=== PATIENT | female | born 1950 | race Caucasian/White ===

== ENCOUNTER 2016-09-06 15:16 | Emergency (ER) | payer MEDICARE, OTHER ==
[2016-09-06 15:45] VITALS: TEMP 97.9
--- NOTE | 2016-09-06 15:51 | ED.PDOC ---
History of Present Illness - General Chief Complaint: Respiratory Problem Stated Complaint: cough,congestion,itchy throat Time Seen by Provider: 09/06/16 15:47 Source: patient Exam Limitations: no limitations - History of Present Illness Initial Comments: She stated that her dry cough and and nasal congestion started one week ago after coming from [facility] to visit relatives.She has history of asthma but stated feels that its not her asthma its her allergies. Timing/Duration: other - 10 days ago Severity: moderate Improving Factors: nothing Worsening Factors: other - weather Associated Symptoms: denies symptoms Allergies/Adverse Reactions: Allergies NO KNOWN ALLERGY Allergy (Verified 09/06/16 15:45) Home Medications: Ambulatory Orders Amitriptyline HCl 50 mg PO BEDTIME 09/06/16 Benzonatate Perles [Tessalon Perles] 200 mg PO BID #30 cap 09/06/16 Cefuroxime Axetil [Ceftin] 500 mg PO BID #14 tab 09/06/16 Cetirizine HCl [ZyrTEC] 10 mg PO DAILY 09/06/16 Chlorpheniramine Maleate [Chlor-Trimeton Allergy] 12 mg PO BEDTIME #30 tab 09/06 Levothyroxine Sodium 25 mcg PO DAILY 09/06/16 Lisinopril 5 mg PO DAILY 09/06/16 Pantoprazole Sodium 40 mg PO DAILY 09/06/16 amLODIPine BESYLATE [Norvasc] 5 mg PO DAILY 09/06/16 predniSONE [Prednisone] 10 mg PO BID #14 tab 09/06/16 Review of Systems - Review of Systems Constitutional: States: no symptoms reported EENTM: States: nose congestion Respiratory: States: cough Cardiology: States: no symptoms reported Gastrointestinal/Abdominal: States: no symptoms reported Genitourinary: States: no symptoms reported Musculoskeletal: States: no symptoms reported Skin: States: no symptoms reported Neurological: States: no symptoms reported Endocrine: States: no symptoms reported Hematologic/Lymphatic: States: no symptoms reported Past Medical History (General) - Patient Medical History Hx Asthma: Yes Hx Hypertension: Yes Surgical History: tonsillectomy, Hysterectomy - Vaccination History Hx Influenza Vaccination: Yes Hx Pneumococcal Vaccination: Yes - Social History Hx Tobacco Use: No Family Medical History - Family History Mother Family History: Unknown Living Status: Unknown Hx Family Hypertension: Yes - multiple family members Physical Exam - Physical Exam General Appearance: Alert, No apparent distress Eye Exam: bilateral normal Ears, Nose, Throat: hearing grossly normal, normal ENT inspection, normal pharynx, nasal congestion Neck: non-tender, full range of motion, supple Respiratory: chest non-tender, lungs clear, normal breath sounds, no respiratory distress Cardiovascular/Chest: normal peripheral pulses, regular rate, rhythm, no edema, no gallop, no JVD, no murmur Peripheral Pulses: radial,right: 2+, radial,left: 2+ Gastrointestinal/Abdominal: normal bowel sounds, non tender, soft, no organomegaly Back Exam: normal inspection, no CVA tenderness, no vertebral tenderness Extremity: normal range of motion, non-tender, normal inspection Neurologic: no motor/sensory deficits, alert, normal mood/affect, oriented x 3 Skin Exam: normal color, warm/dry Lymphatic: no adenopathy Departure - Departure Clinical Impression: Bronchitis with asthma, subacute Time of Disposition: 16:54 Disposition: Discharge to Home or Self Care Condition: Good Departure Forms: ED Discharge - Pt. Copy, Patient Portal Self Enrollment Prescriptions: Cefuroxime Axetil [Ceftin] 500 mg PO BID #14 tab Chlorpheniramine Maleate [Chlor-Trimeton Allergy] 12 mg PO BEDTIME #30 tab predniSONE [Prednisone] 10 mg PO BID #14 tab Benzonatate Perles [Tessalon Perles] 200 mg PO BID #30 cap Home Medications: Ambulatory Orders Amitriptyline HCl 50 mg PO BEDTIME 09/06/16 Benzonatate Perles [Tessalon Perles] 200 mg PO BID #30 cap 09/06/16 Cefuroxime Axetil [Ceftin] 500 mg PO BID #14 tab 09/06/16 Cetirizine HCl [ZyrTEC] 10 mg PO DAILY 09/06/16 Chlorpheniramine Maleate [Chlor-Trimeton Allergy] 12 mg PO BEDTIME #30 tab 09/06 Levothyroxine Sodium 25 mcg PO DAILY 09/06/16 Lisinopril 5 mg PO DAILY 09/06/16 Pantoprazole Sodium 40 mg PO DAILY 09/06/16 amLODIPine BESYLATE [Norvasc] 5 mg PO DAILY 09/06/16 predniSONE [Prednisone] 10 mg PO BID #14 tab 09/06/16
[2016-09-06] MEDS ORDERED: DEXAMETHASONE INJ 4 MG/ML VIAL IM ONE (15:55)
[2016-09-06] MEDS ORDERED: IPRATROPIUM/ALBUTEROL 3 ML VIAL NEB ONE (15:56)
[2016-09-06 16:08] VITALS: O2SAT 99
[2016-09-06 17:04] VITALS: BP 140/85
--- NOTE | 2016-09-22 00:01 | RAD ---
EXAM: Chest,1 View CLINICAL INDICATION: 65-year-old female with cough. TECHNIQUE: Single view, AP portable chest was obtained. COMPARISON: None. FINDINGS: Cardiac mediastinal silhouette within normal limits of size. Heart size is normal. Tortuous thoracic aorta.Low lung volumes grossly clear without focal opacity, pneumothorax or pleural effusions. Faint haziness at the level of the LEFT lower lobe be secondary to subsegmental atelectasis or consolidation. The visualized bones reveal degenerative change. IMPRESSION: 1. Low lung volumes.2. Faint haziness at the level of the LEFT lower lobe be secondary to subsegmental atelectasis or consolidation. Electronically signed by: Beverley Stark MD 09/06/2016 4:31 PM [employer]
== END 2016-09-06 17:04 | disposition home or self-care (01) ==
LOC: ER 15:16
DX: J45.909 Unspecified asthma, uncomplicated (principal); I10 Essential (primary) hypertension; Z79.899 Other long term (current) drug therapy
CPT/HCPCS: 71010; 94640; J1100; J7620

== ENCOUNTER 2016-09-07 13:46 | Emergency (ER) | payer MEDICARE ==
[2016-09-07] MEDS ORDERED: IPRATROPIUM/ALBUTEROL 3 ML VIAL NEB ONE (14:16)
[2016-09-07] MEDS ORDERED: LIDOCAINE VIS-MYLANTA 30 ML UD PO ONE (14:16)
--- NOTE | 2016-09-07 14:19 | ED.PDOC ---
History of Present Illness - General Chief Complaint: Respiratory Problem Stated Complaint: Bronchitis Time Seen by Provider: 09/07/16 13:51 Source: patient, RN notes reviewed, Vital Signs reviewed, old records Exam Limitations: no limitations - History of Present Illness Comments: Patient comes in with c/o continued allergies and bronchitis. She also has a chronic GI reflux issue that has worsened with her current illness. She was seen here in the ER yesterday. Was given a steroid shot and started on antibiotics, PO steroids, cough medication and decongestant. Timing/Duration: yesterday Cough Quality/Degree: moderate, dry cough Possible Cause: allergen exposure, illness exposure Improving Factors: medication Worsening Factors: nothing Associated Symptoms: cough, facial pain, headache, nasal congestion, nasal drainage, shortness of breath Respiratory Risk Factors: exposure to illness, exposure to allergen Allergies/Adverse Reactions: Allergies NO KNOWN ALLERGY Allergy (Verified 09/06/16 15:45) Home Medications: Ambulatory Orders Amitriptyline HCl 50 mg PO BEDTIME 09/06/16 Benzonatate Perles [Tessalon Perles] 200 mg PO BID #30 cap 09/06/16 Cefuroxime Axetil [Ceftin] 500 mg PO BID #14 tab 09/06/16 Cetirizine HCl [ZyrTEC] 10 mg PO DAILY 09/06/16 Chlorpheniramine Maleate [Chlor-Trimeton Allergy] 12 mg PO BEDTIME #30 tab 09/06 Levothyroxine Sodium 25 mcg PO DAILY 09/06/16 Lisinopril 5 mg PO DAILY 09/06/16 Pantoprazole Sodium 40 mg PO DAILY 09/06/16 amLODIPine BESYLATE [Norvasc] 5 mg PO DAILY 09/06/16 predniSONE [Prednisone] 10 mg PO BID #14 tab 09/06/16 Ondansetron [Zofran Odt] 4 mg PO Q4HR PRN #20 tab 09/07/16 Review of Systems - Review of Systems Constitutional: States: malaise, weakness. Denies: chills, diaphoresis, fever EENTM: States: see HPI, nose congestion. Denies: double vision, ear pain, throat pain, throat swelling, mouth pain, mouth swelling Respiratory: States: cough, short of breath. Denies: orthopnea, stridor, wheezing Cardiology: States: no symptoms reported Gastrointestinal/Abdominal: States: see HPI, other - GERD Musculoskeletal: States: no symptoms reported Skin: States: no symptoms reported Neurological: States: headache Endocrine: States: no symptoms reported Hematologic/Lymphatic: States: no symptoms reported Past Medical History (General) - Patient Medical History Hx Asthma: Yes Hx Hypertension: Yes - Vaccination History Hx Influenza Vaccination: Yes Hx Pneumococcal Vaccination: Yes - Social History Hx Tobacco Use: No Family Medical History - Family History Mother Family History: Unknown Living Status: Unknown Hx Family Hypertension: Yes - multiple family members Physical Exam - Physical Exam General Appearance: Alert, Anxious, No apparent distress, Well Developed, Well Groomed, Well Hydrated, Well Nourished Neck: non-tender, full range of motion, supple, normal inspection, trachea midline Respiratory: chest non-tender, no respiratory distress, no accessory muscle use , rhonchi Cardiovascular/Chest: regular rate, rhythm, no edema, no gallop, no JVD, no murmur Extremity: normal range of motion, normal inspection Neurologic: no motor/sensory deficits, alert, normal mood/affect, oriented x 3 Skin Exam: normal color, warm/dry Lymphatic: no adenopathy Progress - Progress Progress: 09/07/16 15:43 Patient is feeling better except for nausea. Will give PO Zofran and write script for her to go home with. Advised to continue antibiotics, steroids and decongestants she was given yesterday. Reassured her that is will most likely take at least 48-72 hours for her to start feeling better. Departure - Departure Clinical Impression: Bronchitis with asthma, subacute, Nausea, GERD (gastroesophageal reflux disease ) Time of Disposition: 15:45 Disposition: Discharge to Home or Self Care Condition: Good Instructions: DI for Acute Bronchitis, DI for Gastroesophageal Reflux Disease ( GERD) Diet: bland diet Activity: increase activity as tolerated Prescriptions: Ondansetron [Zofran Odt] 4 mg PO Q4HR PRN #20 tab PRN Reason: Nausea/Vomiting Home Medications: Ambulatory Orders Amitriptyline HCl 50 mg PO BEDTIME 09/06/16 Benzonatate Perles [Tessalon Perles] 200 mg PO BID #30 cap 09/06/16 Cefuroxime Axetil [Ceftin] 500 mg PO BID #14 tab 09/06/16 Cetirizine HCl [ZyrTEC] 10 mg PO DAILY 09/06/16 Chlorpheniramine Maleate [Chlor-Trimeton Allergy] 12 mg PO BEDTIME #30 tab 09/06 Levothyroxine Sodium 25 mcg PO DAILY 09/06/16 Lisinopril 5 mg PO DAILY 09/06/16 Pantoprazole Sodium 40 mg PO DAILY 09/06/16 amLODIPine BESYLATE [Norvasc] 5 mg PO DAILY 09/06/16 predniSONE [Prednisone] 10 mg PO BID #14 tab 09/06/16 Ondansetron [Zofran Odt] 4 mg PO Q4HR PRN #20 tab 09/07/16 Additional Instructions: Continue antibiotics, steroids and decongestants.
[2016-09-07 14:44] VITALS: TEMP 99.6
[2016-09-07 15:25] VITALS: O2SAT 97
[2016-09-07] MEDS ORDERED: ONDANSETRON ODT 8 MG TAB SL ONE (15:41)
[2016-09-07 16:04] VITALS: BP 141/71
== END 2016-09-07 15:50 | disposition home or self-care (01) ==
LOC: ER 13:46
DX: J45.909 Unspecified asthma, uncomplicated (principal); K21.9 Gastro-esophageal reflux disease without esophagitis; R11.0 Nausea; I10 Essential (primary) hypertension; Z79.899 Other long term (current) drug therapy
CPT/HCPCS: 94640; J7620

== ENCOUNTER 2018-08-08 22:30 | Emergency (ER) | payer MEDICARE, OTHER ==
[2018-08-08] MEDS ORDERED: diphenhydrAMINE HCL 25 MG CAP PO ONE (22:42)
[2018-08-08] MEDS ORDERED: IPRATROPIUM/ALBUTEROL 3 ML VIAL NEB ONE (22:42)
[2018-08-08] MEDS ORDERED: predniSONE 20 MG TAB PO ONE (22:42)
[2018-08-08] MEDS ORDERED: EPINEPHrine HCL AMP 1 MG/ML AMP ONE (23:05)
[2018-08-08] MEDS ORDERED: EPINEPHrine HCL AMP 1 MG/ML AMP IM ONE (23:07)
[2018-08-08] MEDS ORDERED: MONTELUKAST 10 MG TAB ONE (23:11)
[2018-08-09 00:16] VITALS: TEMP 99.2
--- NOTE | 2018-08-09 00:45 | ED.PDOC ---
History of Present Illness - General Chief Complaint: Respiratory Problem Stated Complaint: cough, congestion Time Seen by Provider: 08/08/18 22:38 Source: patient Exam Limitations: no limitations - History of Present Illness Initial Comments: The patient is a 67-year-old female presenting to the emergency room secondary to acute onset of some shortness of breath along with hoarseness and severe coughing. No fevers.. Mild lower sore throat. No facial swelling. She does have a history of severe environmental allergies. She did take a couple of puffs from her inhaler. Timing/Duration: 4-6 hours Severity: moderate Improving Factors: nothing Worsening Factors: nothing Associated Symptoms: shortness of breath Allergies/Adverse Reactions: Allergies NO KNOWN ALLERGY Allergy (Verified 09/06/16 15:45) Home Medications: Ambulatory Orders Levothyroxine Sodium 25 mcg PO DAILY 09/06/16 Lisinopril 5 mg PO DAILY 09/06/16 Pantoprazole Sodium 40 mg PO DAILY 09/06/16 amLODIPine BESYLATE [Norvasc] 10 mg PO DAILY 09/06/16 DULoxetine HCL [Cymbalta] 30 mg PO DAILY 08/08/18 Ferrous Sulfate 325 mg PO DAILY 08/08/18 Fluticasone Furoate-Vilanterol [Breo Ellipta 100-25 Mcg/INH] 08/08/18 Fluticasone Propionate (Nasal) [Flonase] 50 mcg NA DAILY 08/08/18 Gabapentin 300 mg PO TID 08/08/18 predniSONE [Prednisone] 20 mg PO DAILY #5 tab 08/09/18 Review of Systems - Review of Systems Constitutional: States: no symptoms reported EENTM: States: nose congestion Respiratory: States: cough, short of breath Cardiology: States: no symptoms reported Gastrointestinal/Abdominal: States: no symptoms reported Genitourinary: States: no symptoms reported Musculoskeletal: States: no symptoms reported Skin: States: no symptoms reported Neurological: States: no symptoms reported Endocrine: States: no symptoms reported All other Systems: No Change from Baseline Past Medical History (General) - Patient Medical History Hx Stroke: No Hx Asthma: Yes Hx Congestive Heart Failure: No Hx Hypertension: Yes Hx Thyroid Disease: Yes Hx Diabetes: No Hx Gastroesophageal Reflux: Yes Hx Cancer: No Hx Hepatitis C: No Surgical History: appendectomy, tonsillectomy, Hysterectomy - Vaccination History Hx Tetanus, Diphtheria Vaccination: No Hx Influenza Vaccination: No Hx Pneumococcal Vaccination: Yes - Social History Hx Tobacco Use: No Hx Chewing Tobacco Use: No Hx Alcohol Use: Yes - Occas Hx Substance Use: No Hx Substance Use Treatment: No Hx Depression: No Hx Physical Abuse: No Hx Emotional Abuse: No Hx Suspected Abuse: No - Female History Patient is a Female of Child Bearing Age (10 -59 yrs old): No Patient : No Family Medical History - Family History Mother Family History: Unknown Living Status: Unknown Hx Family Hypertension: Yes - multiple family members Physical Exam - Physical Exam General Appearance: Alert, Obvious distress Eye Exam: bilateral normal Ears, Nose, Throat: hearing grossly normal, nasal congestion - hoarse voice and very frequent coughing Neck: full range of motion, supple Respiratory: lungs clear, normal breath sounds, no respiratory distress, no accessory muscle use Cardiovascular/Chest: normal peripheral pulses, regular rate, rhythm - sinus tachycardia, no edema Peripheral Pulses: radial,right: 2+, radial,left: 2+, dorsalis pedis,right: 2+, dorsalis pedis,left: 2+ Gastrointestinal/Abdominal: non tender, soft Rectal Exam: deferred Back Exam: no CVA tenderness, no vertebral tenderness Extremity: non-tender, normal inspection, no pedal edema, normal capillary refill Neurologic: combat control II-XII nml as tested, alert, normal mood/affect, oriented x 3 Skin Exam: normal color Comments: Vital Signs - 24 hr 08/08/18 08/08/18 22:46 23:38 Temperature 100.0 F H 99.2 F Pulse Rate [ 113 H 95 H Right] Respiratory 20 18 Rate Blood Pressure 165/94 160/78 [Left Arm] O2 Sat by Pulse 94 L 96 Oximetry Progress - Progress Progress: 08/09/18 00:46 the patient is a 67-year-old female presenting to emergency room secondary to acute onset laryngitis and tracheitis that appears to be allergic in nature. The patient responded very well to a small dose of IM epinephrine. She was also given doses of Benadryl, prednisone and Singulair. She needs to take her Zyrtec twice daily for the next week. Additionally she'll be written for prednisone 20 mg daily for the next 5 days. She needs to discuss with her primary care doctor the possible need for maintaining functioning epi-pens. ER warnings are given for any worsening. The patient is doing much better at this time. Chest x-ray shows no significant focal infiltrate. Departure - Departure Clinical Impression: Laryngitis acute, spasmodic Allergic reaction Qualifiers: Encounter type: initial encounter Qualified Code(s): T78.40XA - Allergy, unspecified, initial encounter Disposition: Discharge to Home or Self Care Condition: Fair Departure Forms: ED Discharge - Pt. Copy, Patient Portal Self Enrollment Instructions: DI for Asthma -- Adult Diet: regular diet Activity: increase activity as tolerated Prescriptions: predniSONE [Prednisone] 20 mg PO DAILY #5 tab Home Medications: Ambulatory Orders Levothyroxine Sodium 25 mcg PO DAILY 09/06/16 Lisinopril 5 mg PO DAILY 09/06/16 Pantoprazole Sodium 40 mg PO DAILY 09/06/16 amLODIPine BESYLATE [Norvasc] 10 mg PO DAILY 09/06/16 DULoxetine HCL [Cymbalta] 30 mg PO DAILY 08/08/18 Ferrous Sulfate 325 mg PO DAILY 08/08/18 Fluticasone Furoate-Vilanterol [Breo Ellipta 100-25 Mcg/INH] 08/08/18 Fluticasone Propionate (Nasal) [Flonase] 50 mcg NA DAILY 08/08/18 Gabapentin 300 mg PO TID 08/08/18 predniSONE [Prednisone] 20 mg PO DAILY #5 tab 08/09/18 Additional Instructions: the patient is a 67-year-old female presenting to emergency room secondary to acute onset laryngitis and tracheitis that appears to be allergic in nature. The patient responded very well to a small dose of IM epinephrine. She was also given doses of Benadryl, prednisone and Singulair. She needs to take her Zyrtec twice daily for the next week. Additionally she'll be written for prednisone 20 mg daily for the next 5 days. She needs to discuss with her primary care doctor the possible need for maintaining functioning epi-pens. ER warnings are given for any worsening. The patient is doing much better at this time. Chest x-ray shows no significant focal infiltrate.
--- NOTE | 2018-08-09 00:59 | RAD ---
EXAM DESCRIPTION: Chest,2 Views CLINICAL HISTORY: 67 years Female sob 6hrs COMPARISON: 09/06/2015. FINDINGS: The cardiomediastinal silhouette appears unremarkable. Mild tortuosity in the thoracic aorta. Hyperexpanded lungs. Mild scarring/atelectasis at the left lung base. No consolidating infiltrates or pleural effusions. No pneumothorax. Mild retrolisthesis at L2-[address] or MRI of the lumbar spine could be obtained to better evaluate if indicated. IMPRESSION: No acute abnormality is identified. COPD with mild scarring or atelectasis at the left lung base. Electronically signed by: Himanshu Leung MD 08/09/2018 12:44 AM [employer]PER[employer]
[2018-08-09 01:11] VITALS: BP 135/69; O2SAT 97
[2018-08-09] MEDS ORDERED: MONTELUKAST 10 MG TAB PO ONE (22:43)
== END 2018-08-09 01:01 | disposition home or self-care (01) ==
LOC: ER 22:30
DX: J04.2 Acute laryngotracheitis (principal); T78.40XA Allergy, unspecified, initial encounter; J45.909 Unspecified asthma, uncomplicated; I10 Essential (primary) hypertension; E03.9 Hypothyroidism, unspecified; K21.9 Gastro-esophageal reflux disease without esophagitis; Z79.899 Other long term (current) drug therapy
CPT/HCPCS: 71046; 94640; J7512; J7620; Q0163